=== PATIENT | male | born 1990 | race Caucasian/White ===

== ENCOUNTER 2016-10-03 00:11 | Emergency (ER) | payer OTHER ==
[~2016-10-03] VITALS: Ht 175.3 cm; Wt 90.9 kg
[2016-10-03 00:23] VITALS: Ht 175.3 cm; Wt 90.9 kg
[2016-10-03 01:30] LABS: ADD SCAN DIFF NO
[2016-10-03 01:40] LABS: URINE BILIRUBIN (Dip) 1+ (NEGATIVE); URINE BLOOD (Dip) NEGATIVE (NEGATIVE); URINE COLOR YELLOW (YELLOW); URINE GLUCOSE (Dip) NEGATIVE (NEGATIVE); URINE KETONES (Dip) TRACE (NEGATIVE); URINE LEUKOCYTE ESTERASE (Dip) NEGATIVE (NEGATIVE); URINE NITRITE (Dip) NEGATIVE (NEGATIVE); URINE UROBILINOGEN (Dip) 0.2 E.U./dL (0.1-1.0)
[2016-10-03 01:44] LABS: ALBUMIN 4.6 g/dl (3.3-4.9); CHLORIDE 100 mmol/L (97-110); POTASSIUM 3.3 mmol/L (3.5-5.1); SODIUM 144 mmol/L (135-144)
[2016-10-03 01:46] LABS: BASOPHIL # 0.1 10^3/ul (0.0-0.1); BASOPHILS % 0.6 % (0.0-2.0); CREATININE 0.64 mg/dl (0.61-1.24); EOSINOPHILS # 0.2 10^3/ul (0.0-0.5); EOSINOPHILS % 1.4 % (0.0-7.0); HEMATOCRIT 44.6 % (42.0-52.0); HEMOGLOBIN 15.8 g/dl (14.0-18.0); LYMPHOCYTES # 3.1 10^3/ul (0.8-2.9); LYMPHOCYTES % 26.1 % (15.0-51.0); MEAN CORPUSCULAR HEMOGLOBIN 30.6 pg (29.0-33.0); MEAN CORPUSCULAR HGB CONC 35.4 g/dl (32.0-37.0); MEAN CORPUSCULAR VOLUME 86.3 fl (82.0-101.0); MEAN PLATELET VOLUME 10.8 fl (7.4-10.4); MONOCYTE # 0.8 10^3/ul (0.3-0.9); MONOCYTES % 6.6 % (0.0-11.0); NEUTROPHIL # 7.6 10^3/ul (1.6-7.5); NEUTROPHILS % 64.7 % (39.0-77.0); PLATELET COUNT 280 10^3/UL (140-415); RED BLOOD COUNT 5.17 10^6/ul (4.70-6.10); RED CELL DISTRIBUTION WIDTH 11.8 % (11.5-14.5); WHITE BLOOD COUNT 11.8 10^3/ul (4.8-10.8)
[2016-10-03 01:47] LABS: ALANINE AMINOTRANSFERASE 53 IU/L (13-69); ALBUMIN/GLOBULIN RATIO 1.39; ALKALINE PHOSPHATASE 79 IU/L (42-121); ANION GAP 21 (8-16); ASPARTATE AMINO TRANSFERASE 51 IU/L (15-46); BILIRUBIN,INDIRECT 0.7 mg/dl (0-1.1); BILIRUBIN,TOTAL 0.7 mg/dl (0.2-1.3); BLOOD UREA NITROGEN 11 mg/dl (7-20); CARBON DIOXIDE 26 mmol/L (21-31); GLUCOSE 124 mg/dl (70-220); TOTAL PROTEIN 7.9 g/dl (6.1-8.1)
[2016-10-03 01:48] LABS: CALCIUM 9.7 mg/dl (8.4-10.2)
[2016-10-03 01:49] LABS: ADD UMIC NO; URINE TOTAL PROTEIN (Dip) NEGATIVE (NEGATIVE)
[2016-10-03 01:50] LABS: ICTOTEST NEGATIVE (NEGATIVE)
--- NOTE | 2016-10-03 02:27 | ERA ---
ER Documentation Chief Complaint Date/Time DATE: 10/03/16 TIME: 02:26 Chief Complaint HEARING VOICES TELLING HIM TO "BEAT HIMSELF UP", C/O BODY ACHES HPI This is a 26-year-old male with complaints that he hears voices that are telling him to beat himself up. Patient has previous psychiatric history. Denies homicidal ideation. Denies any other current complaints. ROS All systems reviewed and are negative except as per history of present illness. PMhx/Soc History of Surgery: Yes (back surgery) Anesthesia Reaction: No Hx Neurological Disorder: No Hx Respiratory Disorders: No Hx Cardiac Disorders: No Hx Psychiatric Problems: Yes (schizophrenia, bipolar) Hx Miscellaneous Medical Probl: No Hx Alcohol Use: No Hx Substance Use: Yes (marijuana) Hx Tobacco Use: No Smoking Status: Former smoker Physical Exam Vitals Vital Signs Date Time Temp Pulse Resp B/P Pulse Ox O2 Delivery O2 Flow Rate FiO2 10/03/16 00:23 97.4 119 20 120/79 98 Physical Exam Const: [] Head: Atraumatic Eyes: Normal Conjunctiva ENT: Normal External Ears, Nose and Mouth. Neck: Full range of motion..~ No meningismus. Resp: Clear to auscultation bilaterally Cardio: Regular rate and rhythm, no murmurs Abd: Soft, non tender, non distended. Normal bowel sounds Skin: No petechiae or rashes Back: No midline or flank tenderness Ext: No cyanosis, or edema Neur: Awake and alert Psych: Normal Mood and Affect Result Diagram: 10/03/16 0102 10/03/16 0102 Results 24 hrs Laboratory Tests Test 10/03/16 01:02 Acetaminophen Level Pending Alanine Aminotransferase (ALT/SGPT) 53IU/L Albumin 4.6g/dl Albumin/Globulin Ratio 1.39 Alkaline Phosphatase 79IU/L Anion Gap 21 Aspartate Amino Transf (AST/SGOT) 51IU/L Basophils # 0.110^3/ul Basophils % 0.6% Blood Urea Nitrogen 11mg/dl Calcium Level 9.7mg/dl Carbon Dioxide Level 26mmol/L Chloride Level 100mmol/L Creatinine 0.64mg/dl Direct Bilirubin 0.00mg/dl Eosinophils # 0.210^3/ul Eosinophils % 1.4% Ethyl Alcohol Level Pending Globulin 3.30g/dl Glucose Level 124mg/dl Hematocrit 44.6% Hemoglobin 15.8g/dl Indirect Bilirubin 0.7mg/dl Lymphocytes # 3.110^3/ul Lymphocytes % 26.1% Mean Corpuscular Hemoglobin 30.6pg Mean Corpuscular Hemoglobin Concent 35.4g/dl Mean Corpuscular Volume 86.3fl Mean Platelet Volume 10.8fl Monocytes # 0.810^3/ul Monocytes % 6.6% Neutrophils # 7.610^3/ul Neutrophils % 64.7% Nucleated Red Blood Cells # 0.010^3/ul Nucleated Red Blood Cells % 0.0/100WBC Platelet Count 57697^3/UL Potassium Level 3.3mmol/L Red Blood Count 5.1710^6/ul Red Cell Distribution Width 11.8% Salicylates Level Pending Sodium Level 144mmol/L Total Bilirubin 0.7mg/dl Total Protein 7.9g/dl Urine Bilirubin 1+ Urine Clarity CLEAR Urine Color YELLOW Urine Glucose NEGATIVE% Urine Hemoglobin NEGATIVE Urine Ictotest NEGATIVE Urine Ketones TRACE Urine Leukocyte Esterase NEGATIVE Urine Nitrite NEGATIVE Urine Specific [place] 1.025 Urine Total Protein NEGATIVE Urine Urobilinogen 0.2 E.U./dL Urine pH 6.0 White Blood Count 11.810^3/ul Procedures/MDM Patient's behavioral symptoms have stabilized while in the department. Patient is medically cleared and appropriate for psychiatric evaluation and work up. No e/o neurologic, toxic, infectious, or metabolic cause. Departure Diagnosis: Primary Impression: Psychological disorder Additional Impression: Psychosis Qualified Code: F29 - Psychosis, unspecified psychosis type Condition: Serious JOSELUISJAYNETAYLOR HERNANDEZ XaviPreeti Oct 03, 2016 02:27
[2016-10-03 02:28] LABS: ACETAMINOPHEN < 10.0 ug/ml (10.0-30.0); ETHANOL < 10.0 mg/dl; SALICYLATE < 1.0 mg/dl (5.0-30.0)
[2016-10-03 02:45] LABS: BARBITURATES Negative (NEGATIVE); BENZODIAZEPINES Negative (NEGATIVE); CANNABINOIDS Negative (NEGATIVE); COCAINE Negative (NEGATIVE); OPIATES Negative (NEGATIVE)
--- NOTE | 2016-10-03 03:39 | PSY ---
Date/Time of Note Date/Time of Note DATE: 10/03/16 TIME: 03:31 Psychiatric Subjective Eval Consent Pt consented to telemedicine: Yes Subjective Evaluation Patient location: emergency Chief Complaint: HEARING VOICES TELLING HIM TO "BEAT HIMSELF UP", C/O BODY ACHES Reason for consult: odd behavior History of present illness patient is a 26 yo male homeles homeless for 3 weeks living with his mother with her who came to the ER due to hitting himself in his private and masturbating without feeling in control of himself , he states that he has been feelign depressed for weeks due to being homeless and has been hearing voices but denies the voices telling him to hurt himself or other people, feeling paranoid and anxious with problem sleeping, he is alert and oriented, goal directed, wants to get help with medication , denies any drug or alcohol use. Family History denies Medical history Problems Medical Problems: (1) Alcoholic intoxication Status: Acute (2) Psychological disorder Status: Acute (3) Psychosis Status: Acute Substance Abuse Substance use: No known substance abuse Social History Marital status: single Level of education: hs DPA/Conservatorship: No Occupation/Penitentiary: no Psychiatric Objective Eval Review of Systems: Review of Systems: Not Applicable Physical Examination: Physical Examination: Applicable Sleep: Insomnia Appetite: Decreased Energy: Decreased Interest: Decreased Mental Status Examination: Appearance: Disheveled Eye Contact: Good Psychomotor Activity: Normal Behavior: Cooperative Speech: Clear AFFECT: Depressed Mood: Depressed Though Process: Linear Thought Content: Delusions Homicidal: No On 72 hour hold: No Orientation: x3 Cognition: Alert Insight: Intact Judgement: Intact Attention Span: Intact Laboratory Results Laboratory Tests Test 10/03/16 01:02 Acetaminophen Level < 10.0ug/ml Alanine Aminotransferase (ALT/SGPT) 53IU/L Albumin 4.6g/dl Albumin/Globulin Ratio 1.39 Alkaline Phosphatase 79IU/L Anion Gap 21 Aspartate Amino Transf (AST/SGOT) 51IU/L Basophils # 0.110^3/ul Basophils % 0.6% Blood Urea Nitrogen 11mg/dl Calcium Level 9.7mg/dl Carbon Dioxide Level 26mmol/L Chloride Level 100mmol/L Creatinine 0.64mg/dl Direct Bilirubin 0.00mg/dl Eosinophils # 0.210^3/ul Eosinophils % 1.4% Ethyl Alcohol Level < 10.0mg/dl Globulin 3.30g/dl Glucose Level 124mg/dl Hematocrit 44.6% Hemoglobin 15.8g/dl Indirect Bilirubin 0.7mg/dl Lymphocytes # 3.110^3/ul Lymphocytes % 26.1% Mean Corpuscular Hemoglobin 30.6pg Mean Corpuscular Hemoglobin Concent 35.4g/dl Mean Corpuscular Volume 86.3fl Mean Platelet Volume 10.8fl Monocytes # 0.810^3/ul Monocytes % 6.6% Neutrophils # 7.610^3/ul Neutrophils % 64.7% Nucleated Red Blood Cells # 0.010^3/ul Nucleated Red Blood Cells % 0.0/100WBC Platelet Count 79997^3/UL Potassium Level 3.3mmol/L Red Blood Count 5.1710^6/ul Red Cell Distribution Width 11.8% Salicylates Level < 1.0mg/dl Sodium Level 144mmol/L Total Bilirubin 0.7mg/dl Total Protein 7.9g/dl Urine Amphetamines Screen Negative Urine Barbiturates Negative Urine Benzodiazepines Screen Negative Urine Bilirubin 1+ Urine Cannabinoids Negative Urine Clarity CLEAR Urine Cocaine Screen Negative Urine Color YELLOW Urine Glucose NEGATIVE% Urine Hemoglobin NEGATIVE Urine Ictotest NEGATIVE Urine Ketones TRACE Urine Leukocyte Esterase NEGATIVE Urine Nitrite NEGATIVE Urine Opiates Screen Negative Urine Specific [place] 1.025 Urine Total Protein NEGATIVE Urine Urobilinogen 0.2 E.U./dL Urine pH 6.0 White Blood Count 11.810^3/ul Assessment and Plan Assessment/Diagnosis [place] I: psychosis nos mood do nos [place] II: deferred [place] III: as per record [place] IV: homeless [place] V: gaf 65 Recommendation/Plan Medication Management haldol 5 mg po qhs for one week ativan 1 mg po qhs for one week Follow-up/Disposition In my opinion,for this patient, outpatient care is the least restrictive option. Based on available evidence, this condition CAN be safely treated at a lower level of care effective today. Patient is stable without clear and convincing evidence of imminent danger due to mental illness that requires acute inpatient psychiatric care as the least restrictive alternative. Please discharge patient with referral for follow up to a outpatient mental health clinic for psychotherapy and medication. KIKE NUÑEZ MD Oct 03, 2016 03:39
[2016-10-03] MEDS ORDERED: HAL5 PO (03:40)
[2016-10-03] MEDS ORDERED: LORA1TAB PO (03:40)
[2016-10-03 07:12] VITALS: BP 133/78; PULSE 78; RESP 18; TEMP 98.6
== END 2016-10-03 07:39 ==
LOC: E/R 00:11
DX: F29 Unspecified psychosis not due to a substance or known physiological condition (principal); R40.2252 Coma scale, best verbal response, oriented, at arrival to emergency department; R40.2362 Coma scale, best motor response, obeys commands, at arrival to emergency department; R40.2142 Coma scale, eyes open, spontaneous, at arrival to emergency department; Z87.891 Personal history of nicotine dependence
CPT/HCPCS: 36415; 80053; 80306; 80307; 81003; 85025; Z7502; 99285

== ENCOUNTER 2016-10-06 23:06 | Emergency (ER) | payer OTHER ==
[~2016-10-06] VITALS: Ht 175.3 cm; Wt 93.6 kg
[~2016-10-06 23:06] MED LIST: HAL5 PO; LORA1TAB PO
[2016-10-06 23:35] VITALS: Ht 175.3 cm; Wt 93.6 kg
[2016-10-07] MEDS ORDERED: IBUPROFEN 800 MG TAB PO ONE (03:30)
--- NOTE | 2016-10-07 04:33 | ERD ---
ER Documentation Chief Complaint Date/Time DATE: 10/07/16 TIME: 04:31 Chief Complaint chronic back pain HPI This is a 26-year-old male who presents to the emergency department today complaining of back pain after slipping and falling on the concrete earlier this evening. States he has not taken any medication for the pain. Patient states he is homeless. Denies any fevers or chills or dysuria. Denies any loss of bowel or bladder control. ROS All systems reviewed and are negative except as per history of present illness. Medications Home Meds Active Scripts Acetaminophen* (Tylophen*) 500 Mg Capsule, 1 CAP PO Q6H Y for PAIN AND OR ELEVATED TEMP, #30 CAP Prov:RONEY FOX PA-C 10/07/16 Ibuprofen* (Motrin*) 800 Mg Tab, 800 MG PO Q6, #30 TAB Prov:RONEY FOX PA-C 10/07/16 Lorazepam* (Lorazepam*) 1 Mg Tablet, 1 MG PO HS Y for ANXIETY, #7 TAB Prov:TAYLOR FRASER 10/03/16 Haloperidol* (Haldol*) 5 Mg Tab, 5 MG PO QHS for 7 Days, TAB Prov:TAYLOR FRASER 10/03/16 Allergies Allergies: Coded Allergies: No Known Allergy (Unverified , 10/03/16) PMhx/Soc History of Surgery: Yes (back surgery) Anesthesia Reaction: No Hx Neurological Disorder: No Hx Respiratory Disorders: No Hx Cardiac Disorders: No Hx Psychiatric Problems: Yes (schizophrenia, bipolar) Hx Miscellaneous Medical Probl: No Hx Alcohol Use: No Hx Substance Use: Yes (marijuana) Hx Tobacco Use: No Smoking Status: Never smoker Physical Exam Vitals Vital Signs Date Time Temp Pulse Resp B/P Pulse Ox O2 Delivery O2 Flow Rate FiO2 10/06/16 23:35 98.8 115 18 122/71 96 Physical Exam Const: No acute distress Head: Atraumatic Eyes: Normal Conjunctiva ENT: Normal External Ears, Nose and Mouth. Neck: Full range of motion..~ No meningismus. Resp: Clear to auscultation bilaterally Cardio: Regular rate and rhythm, no murmurs Abd: Soft, non tender, non distended. Normal bowel sounds Back: Thoracic spine midline tenderness. No paraspinal tenderness. Full active range of motion with pain. Pulses 2+. Distal neurovascular intact. No lumbar tenderness. Negative straight leg raise. Ext: No cyanosis, or edema Neur: Awake and alert Psych: Normal Mood and Affect Results 24 hrs Current Medications Medications (Trade) Dose Ordered Sig/Keisha Route PRN Reason Start Time Stop Time Status Last Admin Dose Admin Ibuprofen (Motrin) 800 mg ONCE ONCE PO 10/07/16 03:30 10/07/16 03:31 DC 10/07/16 03:49 DIAGNOSTIC IMAGING REPORT Patient: ALEX MATOS : 1990 Age: 26 Sex: M MR #: [id number] DOS: 10/07/16 0000 Ordering MD: RONEY FOX PA-C Location: [facility] Room/Bed: PROCEDURE: Thoracic Spine. CLINICAL INDICATION: Trauma, fall TECHNIQUE: Three views of the thoracic spine are available for review. The patient was unable to follow instructions to suspend respiration with respiratory motion artifact. COMPARISON: None available FINDINGS: There is appearance of minimal S-shaped curvature of the thoracic spine. No fracture or dislocation is seen. IMPRESSION: No fracture seen. RPTAT: HJES .Quentin Eastman MD, MD Date Time Electronically viewed and signed by .Quentin Eastman MD, MD on 10/07/2016 04:31 .S/ CC: RONEY FOX PA-C Procedures/MDM This is a 26-year-old male who presents the emergency department today complaining of back pain after slipping and falling on concrete earlier in the evening. Patient had midline tenderness and therefore did obtain imaging. The radiology report images of the thoracic spine show an appearance of minimal S8 curvature of the thoracic spine for there is no acute fracture dislocation. Symptoms at this time is consistent with contusion versus sprain versus strain. Patient is afebrile and otherwise well-appearing. He has no loss of bowel or bladder control and have low suspicion for abscess or cauda equina. Patient was given Motrin here in the emergency department. He will given a prescription for Tylenol Motrin for home. At this time the patient is stable for discharge and outpatient management. Patient should follow up with their PCP in the next 1-2 days. They may return to the emergency department sooner for any persistent or worsening of symptoms. Patient understood and agreed with the plan. Departure Diagnosis: Primary Impression: Injury of back Encounter type: initial encounter Qualified Code: S39.92XA - Injury of back , initial encounter Condition: Fair RONEY FOX PA-C Oct 07, 2016 04:33
[2016-10-07] MEDS ORDERED: IBUP800T25 PO (04:37)
[2016-10-07] MEDS ORDERED: ACET500C5 PO (04:37)
[2016-10-07 04:54] VITALS: BP 115/70; PULSE 97; RESP 16
== END 2016-10-07 04:56 | disposition home or self-care (01) ==
LOC: FTE 23:06
DX: S39.92XA Unspecified injury of lower back, initial encounter (principal); W01.0XXA Fall on same level from slipping, tripping and stumbling without subsequent striking against object, initial encounter; Y92.9 Unspecified place or not applicable
CPT/HCPCS: 72072; Z7502; Z7610

== ENCOUNTER 2017-06-12 21:00 | Emergency (ER) | payer OTHER ==
[~2017-06-12] VITALS: Ht 175.3 cm; Wt 93.3 kg
[~2017-06-12 21:00] MED LIST changes: +ACET500C5 PO; -HAL5 PO; +HALO5TAB23 PO; +IBUP800T25 PO
[2017-06-12 21:05] VITALS: Ht 175.3 cm; Wt 93.3 kg
--- NOTE | 2017-06-13 01:40 | ERD ---
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 However the patient admits to hearing voices telling him to hurt himself as well. History of schizophrenia. No other current complaints. No homicidal ideation. ROS All systems reviewed and are negative except as per history of present illness. Medications Home Meds Active Scripts Acetaminophen* (Tylophen*) 500 Mg Capsule, 1 CAP PO Q6H Y for PAIN AND OR ELEVATED TEMP, #30 CAP Prov:RONEY FOX PA-C 10/07/16 Ibuprofen* (Motrin*) 800 Mg Tab, 800 MG PO Q6, #30 TAB Prov:RONEY FOX PA-C 10/07/16 Lorazepam* (Lorazepam*) 1 Mg Tablet, 1 MG PO HS Y for ANXIETY, #7 TAB Prov:TAYLOR FRASER SPreeti 10/03/16 Haloperidol* (Haldol*) 5 Mg Tab, 5 MG PO QHS for 7 Days, TAB Prov:TAYLOR FRASER S. 10/03/16 Allergies Allergies: Coded Allergies: No Known Allergy (Unverified , 10/03/16) PMhx/Soc History of Surgery: Yes (back surgery) Anesthesia Reaction: No Hx Neurological Disorder: No Hx Respiratory Disorders: No Hx Cardiac Disorders: No Hx Psychiatric Problems: Yes (schizophrenia, bipolar) Hx Miscellaneous Medical Probl: No Hx Alcohol Use: No Hx Substance Use: Yes (marijuana) Hx Tobacco Use: Yes Smoking Status: Former smoker Physical Exam Vitals Vital Signs Date Time Temp Pulse Resp B/P Pulse Ox O2 Delivery O2 Flow Rate FiO2 06/12/17 21:05 98.4 88 19 154/81 100 Physical Exam Const: [] Head: Atraumatic Eyes: Normal Conjunctiva ENT: Normal External Ears, Nose and Mouth. Neck: Full range of motion..~ No meningismus. Resp: Clear to auscultation bilaterally Cardio: Regular rate and rhythm, no murmurs Abd: Soft, non tender, non distended. Normal bowel sounds Skin: No petechiae or rashes Back: No midline or flank tenderness Ext: No cyanosis, or edema Neur: Awake and alert Psych: Normal Mood and Affect Result Diagram: 06/12/17 0013 06/12/17 0013 Results 24 hrs Laboratory Tests Test 06/12/17 00:13 06/13/17 00:05 White Blood Count 12.810^3/ul Red Blood Count 5.3110^6/ul Hemoglobin 16.2g/dl Hematocrit 47.4% Mean Corpuscular Volume 89.3fl Mean Corpuscular Hemoglobin 30.5pg Mean Corpuscular Hemoglobin Concent 34.2g/dl Red Cell Distribution Width 12.3% Platelet Count 93303^3/UL Mean Platelet Volume 10.6fl Neutrophils % 67.2% Lymphocytes % 23.6% Monocytes % 6.5% Eosinophils % 1.8% Basophils % 0.6% Nucleated Red Blood Cells % 0.0/100WBC Neutrophils # 8.610^3/ul Lymphocytes # 3.010^3/ul Monocytes # 0.810^3/ul Eosinophils # 0.210^3/ul Basophils # 0.110^3/ul Nucleated Red Blood Cells # 0.010^3/ul Sodium Level 142mmol/L Potassium Level 3.7mmol/L Chloride Level 103mmol/L Carbon Dioxide Level 29mmol/L Anion Gap 14 Blood Urea Nitrogen 23mg/dl Creatinine 0.75mg/dl Glucose Level 95mg/dl Calcium Level 9.9mg/dl Total Bilirubin 0.8mg/dl Direct Bilirubin 0.00mg/dl Indirect Bilirubin 0.8mg/dl Aspartate Amino Transf (AST/SGOT) 39IU/L Alanine Aminotransferase (ALT/SGPT) 92IU/L Alkaline Phosphatase 77IU/L Total Protein 8.0g/dl Albumin 4.5g/dl Globulin 3.50g/dl Albumin/Globulin Ratio 1.28 Salicylates Level Pending Acetaminophen Level Pending Ethyl Alcohol Level < 10.0mg/dl Urine Color YELLOW Urine Clarity CLEAR Urine pH 5.0 Urine Specific [place] 1.032 Urine Ketones 1+mg/dL Urine Nitrite NEGATIVEmg/dL Urine Bilirubin NEGATIVEmg/dL Urine Urobilinogen 2+mg/dL Urine Leukocyte Esterase NEGATIVELeu/ul Urine Hemoglobin NEGATIVEmg/dL Urine Glucose NEGATIVEmg/dL Urine Total Protein NEGATIVEmg/dl Urine Opiates Screen Negative Urine Barbiturates Negative Urine Amphetamines Screen Negative Urine Benzodiazepines Screen Negative Urine Cocaine Screen Negative Urine Cannabinoids Negative Procedures/MDM Patient's behavioral symptoms have stabilized while in the department. Patient is medically cleared and appropriate for psychiatric evaluation and work up. No e/o neurologic, toxic, infectious, or metabolic cause. Departure Diagnosis: Primary Impression: Hallucinations Condition: Serious TAYLOR FRASER Jun 13, 2017 01:40
--- NOTE | 2017-06-13 03:18 | PSY ---
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 He states that his heart stopped and he was hurting, he is unable to describe to me his panic attack , he is very disorganized and confused, he denies feeling depressed and tells me that he is homeless for 3 years, he gave me his mother phone number that i called. HIs mother sharmila phone [phone] states that she has been trying to get him admitted to a psych unit for month but he is refusing to go and police states that they cant help her, she says that he has been psychotic for months staying in [address] not able to get housing , not eating well, not sleeping , he used to take amphetamine but she thinks he stopped abusing it because he is not as paranoid as he used to be, he has tried to kill himself before and has been admitted to psych years ago but has refused to his his antipsychotic. she is really worried about him, he came to her house yesterday and was also very disorganized, not making sense but he refused to go to the hospital, he is really paranoid about his family. Past psychiatric history past suicidal attempt yes Medical history Problems Medical Problems: (1) Alcoholic intoxication Status: Acute (2) Hallucinations Status: Acute (3) Injury of back Status: Acute (4) Psychological disorder Status: Acute (5) Psychosis Status: Acute Allergies: Coded Allergies: No Known Allergy (Unverified , 06/13/17) Substance Abuse Substance abuse history: Yes (meth) Prior substance abuse treatmen: No Social History Marital status: single Level of education: hs DPA/Conservatorship: No Occupation/Senior Care: none Psychiatric Objective Eval Review of Systems: Review of Systems: Not Applicable Physical Examination: Physical Examination: Applicable Sleep: Insomnia Appetite: Decreased Energy: Decreased Interest: Decreased Mental Status Examination: Appearance: Disheveled Eye Contact: Fair Psychomotor Activity: Slow Behavior: Guarded Speech: Disorganized AFFECT: Flat Mood: Anxious Though Process: Loose Thought Content: Delusions Homicidal: No On 72 hour hold: No Orientation: x2 Insight: Impared Judgement: Impared Attention Span: Distractible Laboratory Results Laboratory Tests Test 06/12/17 00:13 06/13/17 00:05 White Blood Count 12.810^3/ul Red Blood Count 5.3110^6/ul Hemoglobin 16.2g/dl Hematocrit 47.4% Mean Corpuscular Volume 89.3fl Mean Corpuscular Hemoglobin 30.5pg Mean Corpuscular Hemoglobin Concent 34.2g/dl Red Cell Distribution Width 12.3% Platelet Count 83761^3/UL Mean Platelet Volume 10.6fl Neutrophils % 67.2% Lymphocytes % 23.6% Monocytes % 6.5% Eosinophils % 1.8% Basophils % 0.6% Nucleated Red Blood Cells % 0.0/100WBC Neutrophils # 8.610^3/ul Lymphocytes # 3.010^3/ul Monocytes # 0.810^3/ul Eosinophils # 0.210^3/ul Basophils # 0.110^3/ul Nucleated Red Blood Cells # 0.010^3/ul Sodium Level 142mmol/L Potassium Level 3.7mmol/L Chloride Level 103mmol/L Carbon Dioxide Level 29mmol/L Anion Gap 14 Blood Urea Nitrogen 23mg/dl Creatinine 0.75mg/dl Glucose Level 95mg/dl Calcium Level 9.9mg/dl Total Bilirubin 0.8mg/dl Direct Bilirubin 0.00mg/dl Indirect Bilirubin 0.8mg/dl Aspartate Amino Transf (AST/SGOT) 39IU/L Alanine Aminotransferase (ALT/SGPT) 92IU/L Alkaline Phosphatase 77IU/L Total Protein 8.0g/dl Albumin 4.5g/dl Globulin 3.50g/dl Albumin/Globulin Ratio 1.28 Salicylates Level < 1.0mg/dl Acetaminophen Level < 10.0ug/ml Ethyl Alcohol Level < 10.0mg/dl Urine Color YELLOW Urine Clarity CLEAR Urine pH 5.0 Urine Specific [place] 1.032 Urine Ketones 1+mg/dL Urine Nitrite NEGATIVEmg/dL Urine Bilirubin NEGATIVEmg/dL Urine Urobilinogen 2+mg/dL Urine Leukocyte Esterase NEGATIVELeu/ul Urine Hemoglobin NEGATIVEmg/dL Urine Glucose NEGATIVEmg/dL Urine Total Protein NEGATIVEmg/dl Urine Opiates Screen Negative Urine Barbiturates Negative Urine Amphetamines Screen Negative Urine Benzodiazepines Screen Negative Urine Cocaine Screen Negative Urine Cannabinoids Negative Assessment and Plan Assessment/Diagnosis [place] I: psychosis nos anxiety do nos [place] II: deferred [place] III: as per record [place] IV: homeless [place] V: gaf 25 Recommendation/Plan Medication Management risperdal 1 mg po bid ativan 1 mgpo bid cogentin 0.5 mg po bid for all 3 first does stat for psychosis and anxiety Follow-up/Disposition Patient cannot be treated at a lower level of care today due to GRAVE DISABLITY including an inability to carry out basic transactions necessary for survival in these areas and as evidenced by these behaviors:~ - Unable to seek out Food, Unable to seek out Clothing, Unable to seek out Halfway, Severe Financial Incompetence, Severe Failure to Adjust in the Community, Severe Incompetence in Regards to Health Self-Management - Patient is labile,intrusive and socially inappropriate with personal boundaries - Confused, disoriented and grossly unable to distinguish reality from illusion ~ ~-Requires near constant monitoring to prevent inadvertent danger to self and others -No family members willing and able to care for patient in the community with this mental state [id number] Recommendation: KIKE Lisa MD Jun 13, 2017 03:16
[2017-06-13 07:08] VITALS: BP 122/67; PULSE 84; RESP 18; TEMP 98.1
== END 2017-06-13 07:47 ==
LOC: FTE 21:00 → E/R 06-13 07:47
DX: R44.3 Hallucinations, unspecified (principal); Z87.891 Personal history of nicotine dependence
CPT/HCPCS: 80053; 80306; 80307; 81003; 85025; Z7502; 99283

== ENCOUNTER 2017-12-08 00:33 | Emergency (ER) | END 2017-12-08 05:30 | disposition home or self-care (01) ==